=== PATIENT | female | born 1990 | race African-American/Black ===

== ENCOUNTER 2016-08-30 14:56 | Emergency (ER) | payer MEDICAID, OTHER ==
[~2016-08-30] VITALS: Ht 167.6 cm; Wt 95.0 kg
[2016-08-30 14:58] VITALS: BP 113/77; PULSE 98; RESP 18; TEMP 98.8; O2SAT 99
[2016-08-30] MEDS ORDERED: KEPP750T PO (16:21)
--- NOTE | 2016-08-30 17:15 | PD ---
HPI Chief Complaint: Head Injury Time Seen by Provider: 17:14 Travel History International Travel<30 days: No Contact w/Intl Traveler<30days: No Traveled to known affect area: No History of Present Illness HPI 26 year old female presents to the ED for evaluation of headache after minor trauma. Patient states that she was bending over in the car and hit her head on the car door. She endorses bitemporal throbbing headache. No alleviating or exacerbating factors reported. She denies vision changes, dizziness, nausea , vomiting. 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 She does not know the name of the diagnosis. No treatment before arrival. Denies risk of , states that she uses Depo-Provera injections for control. Denies chronic health problems, takes no daily medications. PFSH Past Medical History Diabetes: No Diminished Hearing: No Immune Disorder: No Seizures: Yes Tetanus Vaccination: < 5 Years Influenza Vaccination: No ?: Unknown LMP: YEARS AGO , DEPO : 3 Para: 2 Past Surgical History Surgical History: No Previous Surgery Social History Alcohol Use: No Tobacco Use: No Substance Use: No Allergies-Medications (Allergen,Severity, Reaction): Coded Allergies: Tramadol (Verified Adverse Reaction, Unknown, Nausea/Vomiting, 08/30/16) Reported Meds & Prescriptions Reported Meds & Active Scripts Active Reported Keppra (Levetiracetam) 750 Mg Tab 750 Mg PO BID Review of Systems Except as stated in HPI: all other systems reviewed are Neg Physical Exam Narrative GENERAL: Well-nourished, well-developed black female in no acute distress. Sitting up on the stretcher in no acute distress. SKIN: Warm and dry. Thorough evaluation reveals no edema, ecchymosis, abrasion , or laceration of the skin. Patient is wearing a hair weave so evaluation of the scalp is somewhat obscured. There is no wetness or blood in the hair to indicate there is a hidden laceration. HEAD: Normocephalic. Atraumatic. No raccoon eyes or collazo sign. ++ tenderness to palpation of the left parietal. No bony step-offs. No malocclusion of the teeth. EYES: No scleral icterus. No injection or drainage. PERRLA. EOMI. ENT: Pearly gonzalez tympanic membrane is bilaterally. Nasal mucosa is moist. Oropharynx without erythema, edema or exudate. NECK: Supple, trachea midline. No JVD or lymphadenopathy. No midline tenderness to palpation. Patient retains full, active, painless range of motion of the neck. CARDIOVASCULAR: Regular rate and rhythm without murmurs, gallops, or rubs. 2+ DP and radial pulses bilaterally. RESPIRATORY: Breath sounds clear and equal bilaterally. No accessory muscle use. GASTROINTESTINAL: Abdomen soft, non-tender, nondistended. + Bowel sounds MUSCULOSKELETAL: No cyanosis, or edema. No tenderness to palpation or limitations to range of motion of the joints of the upper and lower extremities bilaterally. NEUROLOGICAL: Awake and alert. Cranial nerves II through XII intact. Motor and sensory grossly within normal limits. 5/5 muscle strength in all muscle groups. Normal speech. BACK: Nontender without obvious deformity. No CVA tenderness. No midline tenderness. Data Data Last Documented VS Vital Signs Date Time Temp Pulse Resp B/P Pulse Ox O2 Delivery O2 Flow Rate FiO2 08/30/16 14:58 98.8 98 18 113/[address] Brain W/O Iv Contrast(Rout) (08/30/16 17:27) Ibuprofen (Motrin) (08/30/16 17:30) MDM Medical Decision Making Medical Screen Exam Complete: Yes Emergency Medical Condition: Yes Differential Diagnosis Cephalgia versus closed head injury versus malingering versus other Narrative Course 26 year old female presents to the ED for evaluation of headache after minor trauma. Patient states that she was bending over in the car and hit her head on the car door. She endorses bitemporal throbbing headache. No alleviating or exacerbating factors reported. She denies vision changes, dizziness, nausea , vomiting. 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 She does not know the name of the diagnosis. Vitals reviewed. Physical exam reveals an alert black female in no acute distress. Patient is wearing a hair wheeze of evaluation the scalp is somewhat obscured but there is no wetness or blood in the hair indicated there is a hidden laceration. Positive tenderness to palpation of the left parietal bone. No bony step-offs. No focal neural deficits. Physical exam is otherwise unremarkable. She was administered [address] of the brain is normal per radiology read. Recheck of the patient reveals improvement of symptoms. This is headache, possible closed head injury. Patient is instructed to follow-up with a neurologist as planned. She indicated understanding of instructions and was amenable to plan of care. She is stable and discharged home. Diagnosis Primary Impression: Closed head injury Qualified Code: S09.90XA - Closed head injury, initial encounter Referrals: Neurologist Patient Instructions: Acute Headache (ED), General Instructions Additional Instructions: Rest, hydrate. Of return to normal, gentle activities as tolerated. Follow-up with the neurologist as planned. Return to the ED for any urgent or emergent medical condition. Disposition: 01 DISCHARGE HOME Condition: Stable Moraima Vann Aug 30, 2016 17:14
[2016-08-30] MEDS ORDERED: IBUPROFEN 800 MG TAB PO ONE (17:30)
--- NOTE | 2016-08-30 17:58 | RADHPO ---
EXAM DATE/TIME: 08/30/2016 17:40 [facility] COMPARISON: No previous studies available for comparison. INDICATIONS : Trauma. Hit top of head on car door. RADIATION DOSE: 66.19 CTDIvol (mGy) MEDICAL HISTORY : Seizures. SURGICAL HISTORY : None. ENCOUNTER: Initial ACUITY: 1 day PAIN SCALE: 6/10 LOCATION: Bilateral cranial TECHNIQUE: Multiple contiguous axial images were obtained of the head. Using automated exposure control and adj ustment of the mA and/or kV according to patient size, radiation dose was kept as low as reasonably a chievable to obtain optimal diagnostic quality images. FINDINGS: CEREBRUM: The ventricles are normal for age. No evidence of midline shift, mass lesion, hemorrhage or acute in farction. No extra-axial fluid collections are seen. POSTERIOR FOSSA: The cerebellum and brainstem are intact. The 4th ventricle is midline. The cerebellopontine angle i s unremarkable. EXTRACRANIAL: The visualized portion of the orbits is intact. SKULL: The calvaria is intact. No evidence of skull fracture. CONCLUSION: No acute disease. Davion Priest MD on August 30, 2016 at 17:56 Board Certified Radiologist. This report was verified electronically.
[2016-11-22] MEDS ORDERED: CYCL1TAB PO (08:44)
== END 2016-08-30 18:32 | disposition home or self-care (01) ==
LOC: PHED 14:56 → PHEFT 18:32
DX: S09.90XA Unspecified injury of head, initial encounter (principal); W22.09XA Striking against other stationary object, initial encounter; Y93.89 Activity, other specified; Y92.89 Other specified places as the place of occurrence of the external cause; Y99.8 Other external cause status
CPT/HCPCS: 70450

== ENCOUNTER → 2016-12-07 | Outpatient (CLI) | payer MEDICAID ==
[~2016-12-07] MED LIST: CYCL1TAB PO; KEPP750T PO
[2016-12-07 12:52] LABS: HEMATOCRIT 41.4 % (35.0-46.0); MEAN CELL VOLUME 85.6 FL (80.0-100.0); MEAN CORPUSCULAR HEMOGLOBIN 28.3 PG (27.0-34.0); MEAN CORPUSCULAR HGB CONC 33.1 % (32.0-36.0); PLATELET COUNT 265 TH/MM3 (150-450); RED BLOOD COUNT 4.84 MIL/MM3 (4.00-5.30); RED CELL DISTRIBUTION WIDTH 13.4 % (11.6-17.2); REVIEW FLAG FINAL; WHITE BLOOD COUNT 4.9 TH/MM3 (4.0-11.0)
[2016-12-07 13:00] LABS: INTERNATIONAL NORMALIZED RATIO 0.9 RATIO; PROTHROMBIN TIME - PATIENT 10.1 SEC (9.8-11.6)
[2016-12-07 13:18] LABS: ANION GAP 6 MEQ/L (5-15); BICARBONATE 27.7 MEQ/L (21.0-32.0); BLOOD UREA NITROGEN 5 MG/DL (7-18); CHLORIDE 109 MEQ/L (98-107); GLOMERULAR FILTRATION RATE 100 ML/MIN (>89); GLUCOSE,FASTING 99 MG/DL (74-99); SODIUM (NA) 143 MEQ/L (136-145)
[2016-12-07 13:34] LABS: ALKALINE PHOSPHATASE 61 U/L (45-117); ALT (GPT) 32 U/L (10-53); AST (GOT) 19 U/L (15-37); TOTAL BILIRUBIN ADULT 0.2 MG/DL (0.2-1.0)
[2016-12-07 21:37] LABS: HEMOGLOBIN A1b 0.9 %; HEMOGLOBIN Ao 85.7 %; HEMOGLOBIN F 1.1 %; HEMOGLOBIN LA1C 1.9 %; HEMOGLOBIN P3 3.3 %
== END ==
LOC: ELAB 08:17
PROVIDERS: ATTEND Internal Medicine Geriatric Medicine
DX: R04.0 Epistaxis (principal); R73.03 Prediabetes
CPT/HCPCS: 36415; 80053; 83036; 85027; 85610